=== PATIENT | male | born 1970 | race Caucasian/White ===

== ENCOUNTER 2024-10-05 00:58 | Inpatient (IN) | payer SELFPAY ==
[2024-10-05 01:53] LABS: #Basophils 0.04 10x3/uL (0.0-0.2); #Eosinophils Less than 0.03 10x3/uL (0.0-0.7); #Monocytes 0.93 10x3/uL (0.11-0.59); #Neutrophils 10.43 10x3/uL (1.40-6.50); %Basophils 0.3 % (0.0-1.0); %Eosinophils 0.0 % (0.0-10.0); %Lymphocytes 6.4 % (21.0-51.0); %Monocytes 7.5 % (0.0-10.0); %Neutrophils 84.3 % (42.0-75.0); Hematocrit 30.8 % (42.0-52.0); Hemoglobin 11.0 g/dL (14.0-18.0); Mean Corpuscular Hemoglobin 35.4 pg (27.0-31.0); Mean Corpuscular Volume 99.0 fL (78.0-98.0); Platelet Count 122 10x3/uL (130-400); Red Blood Cell (RBC) Count 3.11 mill/uL (4.70-6.10); White Blood Cell (WBC) Count 12.38 10x3/uL (4.8-10.8)
[2024-10-05 01:56] LABS: INR-International Normal Ratio 1.3; Prothrombin Time 16.2 sec (12.0-14.7)
[2024-10-05 01:56] LABS: Bilirubin, Total 13.4 mg/dL (0.3-1.2)
[2024-10-05 01:57] LABS: PTT 40.8 sec (22.9-36.1)
[2024-10-05 02:00] LABS: Acetaminophen Less than 10 mcg/mL (Less than 10); Salicylate Less than 8.0 mg/dL (Less than 8.0)
[2024-10-05 02:01] LABS: ALT (SGPT) 122 U/L (Less than 45); AST (SGOT) 345 U/L (11-34); Albumin 2.5 g/dL (3.1-4.5); Alkaline Phosphatase 229 U/L (40-110); Anion Gap 27 mmol/L (10-20); BUN (Urea Nitrogen) 25 mg/dL (8.4-25.7); Bilirubin, Total 13.7 mg/dL (0.3-1.2); CK (CPK) 148 U/L (30-200); Calc. Creatinine Clearance 0 mL/min (70-130); Calcium 10.6 mg/dL (7.8-10.44); Carbon Dioxide 21 mmol/L (22-29); Chloride 89 mmol/L (98-107); Globulin 5.1 g/dL (2.4-3.5); Glucose 93 mg/dL (70-105); Potassium 3.4 mmol/L (3.5-5.1); Sodium 134 mmol/L (136-145)
[2024-10-05 02:04] LABS: Troponin I 0.036 ng/mL (< 0.028)
[2024-10-05] MEDS ORDERED: cefTRIAXone (ROCEPHIN) 1 GM VIAL ONE (02:15)
[2024-10-05 05:15] LABS: Actual Bicarbonate (HCO3v) 22.6 mEq/L (22-28); Base Excess -0.8 mEq/L (-2.0 to +3.0); Calcium, Ionized (venous) 1.28 mmol/L (1.16-1.32); Chloride (VBG) 94 mmol/L (98-106); Hematocrit-VBG 35 % (42.0-52.0); Hemoglobin (Hb) 11.9 g/dL (13.1-17.2); Potassium (VBG) 3.17 mmol/L (3.70-5.30); Sodium 135 mmol/L (133-146)
[2024-10-05] MEDS ORDERED: Melatonin 3 MG TAB PO PRN (05:39)
[2024-10-05] MEDS ORDERED: Senokot S 8.6-50 MG TAB PO PRN (05:39)
[2024-10-05] MEDS ORDERED: Electrolyte Replacement Protocol 1 EACH FS SCH (05:45)
[2024-10-05 06:17] LABS: Bilirubin, Direct 10.5 mg/dL (0.1-0.3); Magnesium 1.9 mg/dL (1.6-2.6)
[2024-10-05 06:22] LABS: Troponin I 0.040 ng/mL (< 0.028)
[2024-10-05 06:43] VITALS: BMI 41.6
[2024-10-05 07:30] LABS: Cardiac Risk 42.2 (Less than 4.5); Cholesterol 211 mg/dl (< 200 Desired); HDL Cholesterol 5 mg/dL (>60 Neg Risk); Triglycerides 499 mg/dL (Less than 150)
[2024-10-05 07:42] LABS: Thyroid Stimulating Hormone 3.3038 uIU/mL (0.35-4.94)
[2024-10-05 07:45] LABS: Hep A IgM AB NONREACTIVE (NonReactive); Hep A IgM S/CO 0.17 S/CO (0-0.79); Hep B Core IgM Index 0.14 S/CO (0-0.79); Hep B Surf Ag NONREACTIVE S/CO (NonReactive); Hep C IgG Ab NONREACTIVE S/CO (NonReactive); Hep C Index 0.15 S/CO (0-0.79)
[2024-10-05 08:01] LABS: Vitamin B12 Greater than 2000 pg/mL (211-911)
[2024-10-05 08:09] LABS: Troponin I 0.047 ng/mL (< 0.028)
[2024-10-05] MEDS: Albumin 25% 25 GM (100 mL) BOT IVPB SCH (08:58)
[2024-10-05] MEDS ORDERED: Iopamidol 370 76% 100 ML VIAL ONE (09:00)
[2024-10-05] MEDS: Enoxaparin 40 MG (0.4 mL) SYRINGE SC SCH ×2 (09:03→19:52)
[2024-10-05] MEDS: Multivit, Therapeutic 1 TAB PO SCH (09:04)
[2024-10-05] MEDS: Folic Acid 1 MG TAB PO SCH (09:04)
[2024-10-05] MEDS: Magnesium 2 GM/50 ML(in water) 2 GM in Premix 1 BAG IVPB SCH (11:08)
[2024-10-05] MEDS: Clotrimazole 1 % Cream 30 GM TUBE TOP SCH (11:08)
[2024-10-05 11:26] LABS: HIV (1/2) Antibody/Antigen NONREACTIVE (NonReactive); HIV 1/2 INDEX 0.06 S/CO (<1.00)
[2024-10-05 13:53] LABS: Cocaine Metabolite Screen Negative (Negative); THC/Cannabinoid Screen Negative (Negative); Tricyclic Screen Negative (Negative)
[2024-10-05 16:19] LABS: CAUTI Indications for Culture Alt mental st,lethar; Glucose, Urine (Dipstick) Normal (Negative); Leukocyte 25 Leu/uL (Negative); Protein, Urine (Dipstick) 30 mg/dL (Neg-Trace); Specific Gravity, Urine 1.044 (1.002-1.036)
[2024-10-05 16:28] LABS: Bacteria/HPF Rare-Few HPF (None Seen)
[2024-10-05 16:29] LABS: Urine Culture Reflex No No
[2024-10-05] MEDS ORDERED: hydrALAZINE 20 MG/ML VIAL SLOW IVP PRN (21:59)
[2024-10-06 04:39] LABS: ALT (SGPT) 113 U/L (Less than 45); AST (SGOT) 314 U/L (11-34); Albumin 3.3 g/dL (3.1-4.5); Alkaline Phosphatase 200 U/L (40-110); Anion Gap 20 mmol/L (10-20); BUN (Urea Nitrogen) 26 mg/dL (8.4-25.7); Bilirubin, Total 16.9 mg/dL (0.3-1.2); Calc. Creatinine Clearance 117 mL/min (70-130); Calcium 11.1 mg/dL (7.8-10.44); Carbon Dioxide 24 mmol/L (22-29); Chloride 91 mmol/L (98-107); Globulin 4.9 g/dL (2.4-3.5); Glucose 134 mg/dL (70-105); Magnesium 2.2 mg/dL (1.6-2.6); Potassium 2.8 mmol/L (3.5-5.1); Sodium 132 mmol/L (136-145)
[2024-10-06] MEDS ORDERED: Potassium Chloride 20 MEQ in Premix 1 BAG IVPB SCH (04:45)
[2024-10-06 04:48] LABS: #Basophils 0.04 10x3/uL (0.0-0.2); #Eosinophils 0.03 10x3/uL (0.0-0.7); #Monocytes 1.00 10x3/uL (0.11-0.59); #Neutrophils 10.19 10x3/uL (1.40-6.50); %Basophils 0.3 % (0.0-1.0); %Eosinophils 0.2 % (0.0-10.0); %Lymphocytes 6.5 % (21.0-51.0); %Monocytes 8.1 % (0.0-10.0); %Neutrophils 83.2 % (42.0-75.0); Hematocrit 29.7 % (42.0-52.0); Hemoglobin 10.6 g/dL (14.0-18.0); Mean Corpuscular Hemoglobin 36.1 pg (27.0-31.0); Mean Corpuscular Volume 101.0 fL (78.0-98.0); Platelet Count 100 10x3/uL (130-400); Red Blood Cell (RBC) Count 2.94 mill/uL (4.70-6.10); White Blood Cell (WBC) Count 12.27 10x3/uL (4.8-10.8)
[2024-10-06] MEDS: Pantoprazole 40 MG VIAL IVP SCH (08:28)
[2024-10-06 08:36] LABS: Anion Gap 21 mmol/L (10-20); BUN (Urea Nitrogen) 25 mg/dL (8.4-25.7); Calc. Creatinine Clearance 121 mL/min (70-130); Calcium 10.9 mg/dL (7.8-10.44); Carbon Dioxide 22 mmol/L (22-29); Chloride 91 mmol/L (98-107); Glucose 128 mg/dL (70-105); Potassium 2.9 mmol/L (3.5-5.1); Sodium 131 mmol/L (136-145)
[2024-10-06] MEDS: Lactulose 20 GM (30 mL) UDCUP PO SCH ×3 (08:40→21:31)
[2024-10-06] MEDS: NIFEdipine XL 30 MG ER.TAB PO SCH (08:40)
[2024-10-06] MEDS: PHOS-NAK 1 PKT PACK PO SCH ×2 (10:17→15:15)
[2024-10-06 14:15] LABS: Anion Gap 21 mmol/L (10-20); BUN (Urea Nitrogen) 24 mg/dL (8.4-25.7); Calc. Creatinine Clearance 133 mL/min (70-130); Calcium 11.3 mg/dL (7.8-10.44); Carbon Dioxide 21 mmol/L (22-29); Chloride 92 mmol/L (98-107); Glucose 142 mg/dL (70-105); Magnesium 2.1 mg/dL (1.6-2.6); Potassium 3.0 mmol/L (3.5-5.1); Sodium 131 mmol/L (136-145)
[2024-10-06] MEDS: Potassium Phosphate 30 MMOL in Sodium Chloride 0.9% 250 ML 250 ML IVPB SCH (15:15)
[2024-10-06 22:18] LABS: Anion Gap 19 mmol/L (10-20); BUN (Urea Nitrogen) 23 mg/dL (8.4-25.7); Calc. Creatinine Clearance 149 mL/min (70-130); Calcium 10.8 mg/dL (7.8-10.44); Carbon Dioxide 25 mmol/L (22-29); Chloride 95 mmol/L (98-107); Glucose 136 mg/dL (70-105); Magnesium 1.9 mg/dL (1.6-2.6); Potassium 3.1 mmol/L (3.5-5.1); Sodium 136 mmol/L (136-145)
[2024-10-07] MEDS: PHOS-NAK 1 PKT PACK PO SCH (00:06)
[2024-10-07] MEDS: Lactulose 20 GM (30 mL) UDCUP PR SCH ×2 (00:36→10:40)
[2024-10-07 03:02] LABS: Anion Gap 18 mmol/L (10-20); BUN (Urea Nitrogen) 24 mg/dL (8.4-25.7); Calc. Creatinine Clearance 159 mL/min (70-130); Calcium 10.6 mg/dL (7.8-10.44); Carbon Dioxide 24 mmol/L (22-29); Chloride 97 mmol/L (98-107); Glucose 132 mg/dL (70-105); Potassium 3.4 mmol/L (3.5-5.1); Sodium 136 mmol/L (136-145)
[2024-10-07 04:13] LABS: Actual Bicarbonate (HCO3v) 26.1 mEq/L (22-28); Base Excess 2.6 mEq/L (-2.0 to +3.0); Calcium, Ionized (venous) 1.29 mmol/L (1.16-1.32); Chloride (VBG) 98 mmol/L (98-106); Hematocrit-VBG 38 % (42.0-52.0); Hemoglobin (Hb) 13.0 g/dL (13.1-17.2); Potassium (VBG) 3.55 mmol/L (3.70-5.30); Sodium 137 mmol/L (133-146)
[2024-10-07 04:30] LABS: INR-International Normal Ratio 1.5; Prothrombin Time 18.4 sec (12.0-14.7)
[2024-10-07 04:31] LABS: PTT 42.0 sec (22.9-36.1)
[2024-10-07 04:42] LABS: ALT (SGPT) 113 U/L (Less than 45); AST (SGOT) 302 U/L (11-34); Albumin 2.8 g/dL (3.1-4.5); Alkaline Phosphatase 198 U/L (40-110); Anion Gap 20 mmol/L (10-20); BUN (Urea Nitrogen) 22 mg/dL (8.4-25.7); Bilirubin, Total 19.3 mg/dL (0.3-1.2); Calc. Creatinine Clearance 148 mL/min (70-130); Calcium 10.8 mg/dL (7.8-10.44); Carbon Dioxide 24 mmol/L (22-29); Chloride 98 mmol/L (98-107); Globulin 5.2 g/dL (2.4-3.5); Glucose 137 mg/dL (70-105); Magnesium 1.9 mg/dL (1.6-2.6); Potassium 3.5 mmol/L (3.5-5.1); Sodium 138 mmol/L (136-145)
[2024-10-07 05:03] LABS: Hematocrit 33.2 % (42.0-52.0); Hemoglobin 11.7 g/dL (14.0-18.0); Mean Corpuscular Hemoglobin 35.8 pg (27.0-31.0); Mean Corpuscular Volume 101.5 fL (78.0-98.0); Platelet Count 109 10x3/uL (130-400); Red Blood Cell (RBC) Count 3.27 mill/uL (4.70-6.10); White Blood Cell (WBC) Count 12.24 10x3/uL (4.8-10.8)
[2024-10-07] MEDS: Potassium Phosphate 30 MMOL in Sodium Chloride 0.9% 250 ML 250 ML IVPB SCH (05:52)
[2024-10-07 06:41] LABS: Anisocytosis SLIGHT = 6-15 cells HPF (0-5); Macrocytosis MODERATE=16-30 cells HPF (0-5); Nucleated RBC (Manual Ct) 3 % (0); Other Cell Types 4.0; Platelet Adequacy Comment Platelets Decreased; Polychromasia MODERATE = 3-4 cells HPF (0-2); Smudge Cells 22.0 %; Target Cells SLIGHT = 2-5 cells HPF (0-1)
[2024-10-07] MEDS ORDERED: Folic Acid 5 MG/ML MDV SC SCH (09:00)
[2024-10-07] MEDS ORDERED: Lactulose 10 GM/15 ML Oral Solution PR SCH (10:00)
[2024-10-07] MEDS: Folic Acid 0.4 MG in Admixture Fee 1 EACH SC SCH (10:39)
[2024-10-07] MEDS: Lactulose 20 GM (30 mL) UDCUP PER TUBE SCH ×2 (11:01→20:24)
[2024-10-07] MEDS ORDERED: Acetaminophen 500 MG TAB PER TUBE PRN (12:48)
[2024-10-07 13:20] LABS: Bacteria/HPF None Seen HPF (None Seen); CAUTI Indications for Culture Alt mental st,lethar; Glucose, Urine (Dipstick) Normal (Negative); Leukocyte Negative Leu/uL (Negative); Protein, Urine (Dipstick) 30 mg/dL (Neg-Trace); Specific Gravity, Urine 1.025 (1.002-1.036); WBC/HPF 21-50 HPF (0-3)
[2024-10-07 13:23] LABS: Urine Culture Reflex Yes Yes
[2024-10-07 13:24] LABS: Anion Gap 16 mmol/L (10-20); BUN (Urea Nitrogen) 22 mg/dL (8.4-25.7); Calc. Creatinine Clearance 153 mL/min (70-130); Calcium 10.4 mg/dL (7.8-10.44); Carbon Dioxide 25 mmol/L (22-29); Chloride 100 mmol/L (98-107); Glucose 131 mg/dL (70-105); Magnesium 1.8 mg/dL (1.6-2.6); Potassium 3.4 mmol/L (3.5-5.1); Sodium 138 mmol/L (136-145)
[2024-10-07 14:07] LABS: CAUTI Indications for Culture Alt mental st,lethar; Glucose, Urine (Dipstick) Normal (Negative); Leukocyte 25 Leu/uL (Negative); Protein, Urine (Dipstick) 20 mg/dL (Neg-Trace); RBC/HPF 21-50 HPF (0-3); Specific Gravity, Urine 1.024 (1.002-1.036); WBC/HPF 21-50 HPF (0-3)
[2024-10-07 14:09] LABS: Bacteria/HPF 1+ HPF (None Seen)
[2024-10-07] MEDS: Magnesium 2 GM/50 ML(in water) 2 GM in Premix 1 BAG IVPB SCH (14:56)
[2024-10-07] MEDS: cefTRIAXone\\ROCEPHIN 2 GM in Sodium Chloride 0.9% 100 ML IVPB SCH (14:57)
[2024-10-07] MEDS ORDERED: cefTRIAXone\\ROCEPHIN 1 GM in Sodium Chloride 0.9% 100 ML IVPB SCH (15:00)
[2024-10-07] MEDS: Lactulose 20 GM (30 mL) UDCUP PO SCH (17:30)
[2024-10-07] MEDS ORDERED: Furosemide 40 MG (4 mL) VIAL SLOW IVP SCH (17:30)
[2024-10-07] MEDS ORDERED: Lactulose 20 GM (30 mL) UDCUP PER TUBE SCH (21:00)
[2024-10-07 21:12] LABS: Anion Gap 18 mmol/L (10-20); BUN (Urea Nitrogen) 21 mg/dL (8.4-25.7); Calc. Creatinine Clearance 164 mL/min (70-130); Calcium 10.4 mg/dL (7.8-10.44); Carbon Dioxide 25 mmol/L (22-29); Chloride 100 mmol/L (98-107); Glucose 125 mg/dL (70-105); Magnesium 2.2 mg/dL (1.6-2.6); Potassium 3.6 mmol/L (3.5-5.1); Sodium 139 mmol/L (136-145)
[2024-10-07 22:04] LABS: Actual Bicarbonate (HCO3a) 27.8 mEq/L (22-28); Base Excess (BEa) 3.9 mEq/L (-2.0 to +3.0); CO2 Tension 39.3 mmHg (35.0-45.0); Calcium, Ionized (arterial) 1.34 mmol/L (1.12-1.30); Hematocrit-ABG 35 % (42.0-52.0); Hemoglobin (Hb) 11.8 g/dL (14.0-18.0); O2 Tension (PaO2), arterial 70.2 mmHg (80.0-100.0); Potassium - ABG Lab 3.53 mmol/L (3.70-5.30); pH, Arterial 7.468 (7.35-7.45)
[2024-10-08 03:27] LABS: Hematocrit 30.9 % (42.0-52.0); Hemoglobin 10.5 g/dL (14.0-18.0); Mean Corpuscular Hemoglobin 35.6 pg (27.0-31.0); Mean Corpuscular Volume 104.7 fL (78.0-98.0); Platelet Count 134 10x3/uL (130-400); Red Blood Cell (RBC) Count 2.95 mill/uL (4.70-6.10); White Blood Cell (WBC) Count 13.48 10x3/uL (4.8-10.8)
[2024-10-08 03:41] LABS: ALT (SGPT) 111 U/L (Less than 45); AST (SGOT) 284 U/L (11-34); Albumin 2.6 g/dL (3.1-4.5); Alkaline Phosphatase 186 U/L (40-110); Anion Gap 18 mmol/L (10-20); BUN (Urea Nitrogen) 23 mg/dL (8.4-25.7); Bilirubin, Total 21.9 mg/dL (0.3-1.2); Calc. Creatinine Clearance 176 mL/min (70-130); Calcium 10.4 mg/dL (7.8-10.44); Carbon Dioxide 25 mmol/L (22-29); Chloride 100 mmol/L (98-107); Globulin 4.9 g/dL (2.4-3.5); Glucose 135 mg/dL (70-105); Magnesium 2.2 mg/dL (1.6-2.6); Potassium 3.6 mmol/L (3.5-5.1); Sodium 139 mmol/L (136-145)
[2024-10-08 03:47] LABS: Anisocytosis SLIGHT = 6-15 cells HPF (0-5); Macrocytosis SLIGHT = 6-15 cells HPF (0-5); Nucleated RBC (Manual Ct) 7 % (0); Platelet Adequacy Comment Platelets Normal; Polychromasia SLIGHT = 2-3 cells HPF (0-2); Smudge Cells 7.0 %; Target Cells SLIGHT = 2-5 cells HPF (0-1)
[2024-10-08 05:34] LABS: INR-International Normal Ratio 1.5; Prothrombin Time 18.3 sec (12.0-14.7)
[2024-10-08 05:35] LABS: PTT 41.9 sec (22.9-36.1)
[2024-10-08] MEDS ORDERED: Thiamine 100 MG TAB PO SCH (09:00)
[2024-10-08] MEDS: Electrolyte Replacement Protocol 1 EACH FS ONE (09:14)
[2024-10-08] MEDS: PHOS-NAK 1 PKT PACK PO SCH (09:16)
[2024-10-08] MEDS: Mineral Oil ENEMA PR SCH (10:53)
[2024-10-08] MEDS: Lactulose 20 GM (30 mL) UDCUP PER TUBE SCH (18:21)
[2024-10-08] MEDS: Bisacodyl 10 MG SUPP PR SCH (21:04)
[2024-10-09 03:23] LABS: Hematocrit 31.1 % (42.0-52.0); Hemoglobin 10.4 g/dL (14.0-18.0); Mean Corpuscular Hemoglobin 36.1 pg (27.0-31.0); Mean Corpuscular Volume 108.0 fL (78.0-98.0); Platelet Count 134 10x3/uL (130-400); Red Blood Cell (RBC) Count 2.88 mill/uL (4.70-6.10); White Blood Cell (WBC) Count 13.32 10x3/uL (4.8-10.8)
[2024-10-09 03:28] LABS: INR-International Normal Ratio 1.4; Prothrombin Time 17.5 sec (12.0-14.7)
[2024-10-09 03:29] LABS: PTT 44.7 sec (22.9-36.1)
[2024-10-09 04:06] LABS: ALT (SGPT) 104 U/L (Less than 45); AST (SGOT) 278 U/L (11-34); Albumin 2.5 g/dL (3.1-4.5); Alkaline Phosphatase 179 U/L (40-110); Anion Gap 16 mmol/L (10-20); BUN (Urea Nitrogen) 22 mg/dL (8.4-25.7); Bilirubin, Total 23.4 mg/dL (0.3-1.2); Calc. Creatinine Clearance 186 mL/min (70-130); Calcium 10.1 mg/dL (7.8-10.44); Carbon Dioxide 28 mmol/L (22-29); Chloride 102 mmol/L (98-107); Globulin 4.8 g/dL (2.4-3.5); Glucose 130 mg/dL (70-105); Magnesium 2.2 mg/dL (1.6-2.6); Potassium 3.6 mmol/L (3.5-5.1); Sodium 142 mmol/L (136-145)
[2024-10-09 05:34] LABS: Anisocytosis SLIGHT = 6-15 cells HPF (0-5); Macrocytosis MODERATE=16-30 cells HPF (0-5); Nucleated RBC (Manual Ct) 3 % (0); Platelet Adequacy Comment Platelets Normal; Polychromasia SLIGHT = 2-3 cells HPF (0-2); Smudge Cells 22.0 %
[2024-10-10 05:47] LABS: INR-International Normal Ratio 1.3; Prothrombin Time 16.8 sec (12.0-14.7)
[2024-10-10 05:48] LABS: PTT 43.2 sec (22.9-36.1)
[2024-10-10 05:51] LABS: Hematocrit 35.8 % (42.0-52.0); Hemoglobin 11.9 g/dL (14.0-18.0); Mean Corpuscular Hemoglobin 36.5 pg (27.0-31.0); Mean Corpuscular Volume 109.8 fL (78.0-98.0); Platelet Count 143 10x3/uL (130-400); Red Blood Cell (RBC) Count 3.26 mill/uL (4.70-6.10); White Blood Cell (WBC) Count 11.68 10x3/uL (4.8-10.8)
[2024-10-10 06:05] LABS: ALT (SGPT) 108 U/L (Less than 45); AST (SGOT) 318 U/L (11-34); Albumin 2.4 g/dL (3.1-4.5); Alkaline Phosphatase 185 U/L (40-110); Anion Gap 13 mmol/L (10-20); BUN (Urea Nitrogen) 22 mg/dL (8.4-25.7); Bilirubin, Total 24.6 mg/dL (0.3-1.2); Calc. Creatinine Clearance 213 mL/min (70-130); Calcium 10.2 mg/dL (7.8-10.44); Carbon Dioxide 29 mmol/L (22-29); Chloride 103 mmol/L (98-107); Globulin 5.0 g/dL (2.4-3.5); Glucose 122 mg/dL (70-105); Potassium 3.9 mmol/L (3.5-5.1); Sodium 141 mmol/L (136-145)
[2024-10-10 06:29] LABS: Macrocytosis MODERATE=16-30 cells HPF (0-5); Platelet Adequacy Comment Platelets Normal; Polychromasia SLIGHT = 2-3 cells HPF (0-2); Smudge Cells 12.9 %; Target Cells SLIGHT = 2-5 cells HPF (0-1)
[2024-10-10] MEDS: Losartan 25 MG TAB PO SCH (11:11)
[2024-10-11 06:03] LABS: ALT (SGPT) 102 U/L (Less than 45); AST (SGOT) 321 U/L (11-34); Albumin 2.1 g/dL (3.1-4.5); Alkaline Phosphatase 172 U/L (40-110); Anion Gap 15 mmol/L (10-20); BUN (Urea Nitrogen) 28 mg/dL (8.4-25.7); Bilirubin, Total 22.4 mg/dL (0.3-1.2); Calc. Creatinine Clearance 112 mL/min (70-130); Calcium 9.9 mg/dL (7.8-10.44); Carbon Dioxide 28 mmol/L (22-29); Chloride 103 mmol/L (98-107); Globulin 4.7 g/dL (2.4-3.5); Glucose 115 mg/dL (70-105); Potassium 4.1 mmol/L (3.5-5.1); Sodium 142 mmol/L (136-145)
[2024-10-11 06:26] LABS: INR-International Normal Ratio 1.4; Prothrombin Time 17.1 sec (12.0-14.7)
[2024-10-11 06:27] LABS: PTT 45.8 sec (22.9-36.1)
[2024-10-11] MEDS ORDERED: Losartan 25 MG TAB PO SCH (09:00)
[2024-10-11] MEDS: Lansoprazole 30 MG/10 ML UDCUP PER TUBE SCH (09:02)
[2024-10-11] MEDS: Losartan 25 MG TAB PER TUBE SCH (09:02)
[2024-10-11 09:25] LABS: Hematocrit 33.2 % (42.0-52.0); Hemoglobin 11.1 g/dL (14.0-18.0); Mean Corpuscular Hemoglobin 36.6 pg (27.0-31.0); Mean Corpuscular Volume 109.6 fL (78.0-98.0); Platelet Count 154 10x3/uL (130-400); Red Blood Cell (RBC) Count 3.03 mill/uL (4.70-6.10); White Blood Cell (WBC) Count 11.85 10x3/uL (4.8-10.8)
[2024-10-11 09:47] LABS: Anisocytosis MODERATE=16-30 cells HPF (0-5); Giant Platelets 0.9 % (0-5); Macrocytosis MODERATE=16-30 cells HPF (0-5); Nucleated RBC (Manual Ct) 6 % (0); Platelet Adequacy Comment Platelets Normal; Polychromasia MODERATE = 3-4 cells HPF (0-2); Smudge Cells 7.6 %; Spherocytes SLIGHT = 1-5 cells HPF (None Seen); Target Cells MARKED = >16 cells HPF (0-1)
[2024-10-12 05:14] LABS: INR-International Normal Ratio 1.4; PTT 45.7 sec (22.9-36.1); Prothrombin Time 17.6 sec (12.0-14.7)
[2024-10-12 06:05] LABS: ALT (SGPT) 105 U/L (Less than 45); AST (SGOT) 344 U/L (11-34); Albumin 2.0 g/dL (3.1-4.5); Alkaline Phosphatase 186 U/L (40-110); Anion Gap 17 mmol/L (10-20); BUN (Urea Nitrogen) 36 mg/dL (8.4-25.7); Bilirubin, Total 21.4 mg/dL (0.3-1.2); Calc. Creatinine Clearance 78 mL/min (70-130); Calcium 10.1 mg/dL (7.8-10.44); Carbon Dioxide 25 mmol/L (22-29); Chloride 102 mmol/L (98-107); Globulin 4.9 g/dL (2.4-3.5); Glucose 114 mg/dL (70-105); Potassium 3.8 mmol/L (3.5-5.1); Sodium 140 mmol/L (136-145)
[2024-10-12 06:25] LABS: Hematocrit 32.3 % (42.0-52.0); Hemoglobin 10.8 g/dL (14.0-18.0); Mean Corpuscular Hemoglobin 36.2 pg (27.0-31.0); Mean Corpuscular Volume 108.4 fL (78.0-98.0); Platelet Count 176 10x3/uL (130-400); Red Blood Cell (RBC) Count 2.98 mill/uL (4.70-6.10); White Blood Cell (WBC) Count 12.83 10x3/uL (4.8-10.8)
[2024-10-12 08:44] LABS: Anisocytosis MODERATE=16-30 cells HPF (0-5); Macrocytosis SLIGHT = 6-15 cells HPF (0-5); Nucleated RBC (Manual Ct) 1 % (0); Platelet Adequacy Comment Platelets Normal; Polychromasia MODERATE = 3-4 cells HPF (0-2); Smudge Cells 7.9 %; Target Cells MODERATE= 6-15 cells HPF (0-1)
[2024-10-12] MEDS: Folic Acid 1 MG TAB PO SCH (09:15)
[2024-10-12] MEDS: Sodium Phosphate 40 MMOL in Sodium Chloride 0.9% 250 ML 250 ML IVPB SCH (09:23)
[2024-10-12] MEDS: Albumin 25% 25 GM (100 mL) BOT IVPB SCH (09:23)
[2024-10-12] MEDS: prednisoLONE 10 MG ODT TAB PO SCH (13:59)
[2024-10-13 07:36] LABS: ALT (SGPT) 101 U/L (Less than 45); AST (SGOT) 311 U/L (11-34); Albumin 2.8 g/dL (3.1-4.5); Alkaline Phosphatase 169 U/L (40-110); Anion Gap 15 mmol/L (10-20); BUN (Urea Nitrogen) 44 mg/dL (8.4-25.7); Bilirubin, Total 23.6 mg/dL (0.3-1.2); Calc. Creatinine Clearance 89 mL/min (70-130); Calcium 9.9 mg/dL (7.8-10.44); Carbon Dioxide 29 mmol/L (22-29); Chloride 99 mmol/L (98-107); Globulin 4.4 g/dL (2.4-3.5); Glucose 117 mg/dL (70-105); Potassium 3.4 mmol/L (3.5-5.1); Sodium 140 mmol/L (136-145)
[2024-10-13] MEDS: Thiamine 100 MG TAB PO SCH (07:53)
[2024-10-13 07:54] LABS: Hematocrit 31.4 % (42.0-52.0); Hemoglobin 10.7 g/dL (14.0-18.0); Mean Corpuscular Hemoglobin 36.9 pg (27.0-31.0); Mean Corpuscular Volume 108.3 fL (78.0-98.0); Platelet Count 200 10x3/uL (130-400); Red Blood Cell (RBC) Count 2.90 mill/uL (4.70-6.10); White Blood Cell (WBC) Count 12.96 10x3/uL (4.8-10.8)
[2024-10-13] MEDS: Multivit, Therapeutic 1 TAB PO SCH (07:54)
[2024-10-13 08:16] LABS: INR-International Normal Ratio 1.4; PTT 43.1 sec (22.9-36.1); Prothrombin Time 16.9 sec (12.0-14.7)
[2024-10-13 09:16] LABS: Anisocytosis MODERATE=16-30 cells HPF (0-5); Macrocytosis SLIGHT = 6-15 cells HPF (0-5); Ovalocytes SLIGHT = 2-5 cells HPF (0-1); Platelet Adequacy Comment Platelets Normal; Polychromasia MODERATE = 3-4 cells HPF (0-2); Stomatocytes SLIGHT = 2-5 cells HPF (0-1); Target Cells MODERATE= 6-15 cells HPF (0-1)
[2024-10-13] MEDS: Albumin 25% 25 GM (100 mL) BOT IVPB SCH (11:43)
[2024-10-13] MEDS: Lactulose 20 GM (30 mL) UDCUP PR SCH (13:01)
[2024-10-13] MEDS: prednisoLONE 15 MG/5 ML UDCUP PO SCH (20:06)
[2024-10-14 05:30] LABS: Hematocrit 33.2 % (42.0-52.0); Hemoglobin 11.0 g/dL (14.0-18.0); Mean Corpuscular Hemoglobin 35.3 pg (27.0-31.0); Mean Corpuscular Volume 106.4 fL (78.0-98.0); Platelet Count 212 10x3/uL (130-400); Red Blood Cell (RBC) Count 3.12 mill/uL (4.70-6.10); White Blood Cell (WBC) Count 14.31 10x3/uL (4.8-10.8)
[2024-10-14 05:36] LABS: INR-International Normal Ratio 1.5; PTT 46.6 sec (22.9-36.1); Prothrombin Time 18.0 sec (12.0-14.7)
[2024-10-14 05:47] LABS: ALT (SGPT) 90 U/L (Less than 45); AST (SGOT) 279 U/L (11-34); Albumin 2.6 g/dL (3.1-4.5); Alkaline Phosphatase 160 U/L (40-110); Anion Gap 16 mmol/L (10-20); BUN (Urea Nitrogen) 36 mg/dL (8.4-25.7); Bilirubin, Total 21.6 mg/dL (0.3-1.2); Calc. Creatinine Clearance 137 mL/min (70-130); Calcium 9.6 mg/dL (7.8-10.44); Carbon Dioxide 29 mmol/L (22-29); Chloride 96 mmol/L (98-107); Globulin 4.3 g/dL (2.4-3.5); Glucose 154 mg/dL (70-105); Potassium 3.7 mmol/L (3.5-5.1); Sodium 137 mmol/L (136-145)
[2024-10-14 05:57] LABS: Anisocytosis SLIGHT = 6-15 cells HPF (0-5); Macrocytosis SLIGHT = 6-15 cells HPF (0-5); Nucleated RBC (Manual Ct) 1 % (0); Platelet Adequacy Comment Platelets Normal; Polychromasia SLIGHT = 2-3 cells HPF (0-2); Target Cells SLIGHT = 2-5 cells HPF (0-1)
[2024-10-14] MEDS: prednisoLONE 15 MG/5 ML UDCUP PO SCH (11:31)
[2024-10-14] MEDS: Lactulose 20 GM (30 mL) UDCUP PO SCH (13:35)
[2024-10-14] MEDS: Rifaximin 550 MG TAB PO SCH (20:48)
[2024-10-14] MEDS: Nystatin Powder 15 GM BOT TOP PRN (20:49)
[2024-10-15 03:50] LABS: #Basophils 0.04 10x3/uL (0.0-0.2); #Eosinophils Less than 0.03 10x3/uL (0.0-0.7); #Monocytes 1.37 10x3/uL (0.11-0.59); #Neutrophils 11.97 10x3/uL (1.40-6.50); %Basophils 0.3 % (0.0-1.0); %Eosinophils 0.1 % (0.0-10.0); %Lymphocytes 6.3 % (21.0-51.0); %Monocytes 9.3 % (0.0-10.0); %Neutrophils 81.5 % (42.0-75.0); Hematocrit 31.9 % (42.0-52.0); Hemoglobin 10.8 g/dL (14.0-18.0); Mean Corpuscular Hemoglobin 36.1 pg (27.0-31.0); Mean Corpuscular Volume 106.7 fL (78.0-98.0); Platelet Count 243 10x3/uL (130-400); Red Blood Cell (RBC) Count 2.99 mill/uL (4.70-6.10); White Blood Cell (WBC) Count 14.68 10x3/uL (4.8-10.8)
[2024-10-15 04:04] LABS: INR-International Normal Ratio 1.4; PTT 41.8 sec (22.9-36.1); Prothrombin Time 17.0 sec (12.0-14.7)
[2024-10-15 04:08] LABS: ALT (SGPT) 99 U/L (Less than 45); AST (SGOT) 289 U/L (11-34); Albumin 2.4 g/dL (3.1-4.5); Alkaline Phosphatase 170 U/L (40-110); Anion Gap 13 mmol/L (10-20); BUN (Urea Nitrogen) 33 mg/dL (8.4-25.7); Bilirubin, Total 21.0 mg/dL (0.3-1.2); Calc. Creatinine Clearance 183 mL/min (70-130); Calcium 9.6 mg/dL (7.8-10.44); Carbon Dioxide 30 mmol/L (22-29); Chloride 98 mmol/L (98-107); Globulin 4.3 g/dL (2.4-3.5); Glucose 158 mg/dL (70-105); Potassium 3.3 mmol/L (3.5-5.1); Sodium 138 mmol/L (136-145)
[2024-10-15] MEDS: PHOS-NAK 1 PKT PACK PO SCH ×3 (04:43→09:01)
[2024-10-15 08:56] LABS: Magnesium 1.8 mg/dL (1.6-2.6)
[2024-10-15] MEDS: Losartan 25 MG TAB PO SCH (11:50)
[2024-10-16 05:56] LABS: #Basophils 0.05 10x3/uL (0.0-0.2); #Eosinophils Less than 0.03 10x3/uL (0.0-0.7); #Monocytes 1.18 10x3/uL (0.11-0.59); #Neutrophils 15.55 10x3/uL (1.40-6.50); %Basophils 0.3 % (0.0-1.0); %Eosinophils 0.1 % (0.0-10.0); %Lymphocytes 5.6 % (21.0-51.0); %Monocytes 6.5 % (0.0-10.0); %Neutrophils 86.1 % (42.0-75.0); Hematocrit 33.2 % (42.0-52.0); Hemoglobin 11.1 g/dL (14.0-18.0); Mean Corpuscular Hemoglobin 35.4 pg (27.0-31.0); Mean Corpuscular Volume 105.7 fL (78.0-98.0); Platelet Count 234 10x3/uL (130-400); Red Blood Cell (RBC) Count 3.14 mill/uL (4.70-6.10); White Blood Cell (WBC) Count 18.06 10x3/uL (4.8-10.8)
[2024-10-16 06:11] LABS: ALT (SGPT) 119 U/L (Less than 45); AST (SGOT) 334 U/L (11-34); Albumin 2.4 g/dL (3.1-4.5); Alkaline Phosphatase 171 U/L (40-110); Anion Gap 15 mmol/L (10-20); BUN (Urea Nitrogen) 25 mg/dL (8.4-25.7); Bilirubin, Total 22.9 mg/dL (0.3-1.2); Calc. Creatinine Clearance 202 mL/min (70-130); Calcium 9.7 mg/dL (7.8-10.44); Carbon Dioxide 31 mmol/L (22-29); Chloride 97 mmol/L (98-107); Globulin 4.8 g/dL (2.4-3.5); Glucose 117 mg/dL (70-105); Potassium 3.5 mmol/L (3.5-5.1); Sodium 139 mmol/L (136-145)
[2024-10-16] MEDS: Losartan 25 MG TAB PO SCH (10:06)
[2024-10-16 10:59] LABS: INR-International Normal Ratio 1.4; PTT 40.0 sec (22.9-36.1); Prothrombin Time 17.2 sec (12.0-14.7)
[2024-10-17 05:06] LABS: #Basophils 0.03 10x3/uL (0.0-0.2); #Eosinophils Less than 0.03 10x3/uL (0.0-0.7); #Monocytes 1.03 10x3/uL (0.11-0.59); #Neutrophils 13.88 10x3/uL (1.40-6.50); %Basophils 0.2 % (0.0-1.0); %Eosinophils 0.1 % (0.0-10.0); %Lymphocytes 6.3 % (21.0-51.0); %Monocytes 6.4 % (0.0-10.0); %Neutrophils 85.5 % (42.0-75.0); Hematocrit 33.0 % (42.0-52.0); Hemoglobin 11.4 g/dL (14.0-18.0); Mean Corpuscular Hemoglobin 36.5 pg (27.0-31.0); Mean Corpuscular Volume 105.8 fL (78.0-98.0); Platelet Count 228 10x3/uL (130-400); Red Blood Cell (RBC) Count 3.12 mill/uL (4.70-6.10); White Blood Cell (WBC) Count 16.22 10x3/uL (4.8-10.8)
[2024-10-17 05:22] LABS: ALT (SGPT) 125 U/L (Less than 45); AST (SGOT) 301 U/L (11-34); Albumin 2.1 g/dL (3.1-4.5); Alkaline Phosphatase 169 U/L (40-110); Anion Gap 14 mmol/L (10-20); BUN (Urea Nitrogen) 22 mg/dL (8.4-25.7); Bilirubin, Total 21.8 mg/dL (0.3-1.2); Calc. Creatinine Clearance 222 mL/min (70-130); Calcium 9.4 mg/dL (7.8-10.44); Carbon Dioxide 31 mmol/L (22-29); Chloride 96 mmol/L (98-107); Globulin 4.8 g/dL (2.4-3.5); Glucose 110 mg/dL (70-105); Potassium 3.3 mmol/L (3.5-5.1); Sodium 138 mmol/L (136-145)
[2024-10-17 05:24] LABS: Iron 74 ug/dL (65-175); Iron Binding Capacity, Total 104 mcg/dL (261-462)
[2024-10-17 05:39] LABS: INR-International Normal Ratio 1.3; PTT 42.4 sec (22.9-36.1); Prothrombin Time 16.7 sec (12.0-14.7)
[2024-10-17] MEDS: Furosemide 40 MG TAB PO SCH (14:18)
[2024-10-17 14:40] VITALS: BMI 43.9
[2024-10-18 04:52] LABS: #Basophils 0.03 10x3/uL (0.0-0.2); #Eosinophils Less than 0.03 10x3/uL (0.0-0.7); #Monocytes 1.00 10x3/uL (0.11-0.59); #Neutrophils 14.76 10x3/uL (1.40-6.50); %Basophils 0.2 % (0.0-1.0); %Eosinophils 0.1 % (0.0-10.0); %Lymphocytes 6.1 % (21.0-51.0); %Monocytes 5.8 % (0.0-10.0); %Neutrophils 85.3 % (42.0-75.0); Hematocrit 32.6 % (42.0-52.0); Hemoglobin 11.1 g/dL (14.0-18.0); Mean Corpuscular Hemoglobin 36.4 pg (27.0-31.0); Mean Corpuscular Volume 106.9 fL (78.0-98.0); Platelet Count 235 10x3/uL (130-400); Red Blood Cell (RBC) Count 3.05 mill/uL (4.70-6.10); White Blood Cell (WBC) Count 17.29 10x3/uL (4.8-10.8)
[2024-10-18 05:08] LABS: ALT (SGPT) 135 U/L (Less than 45); AST (SGOT) 293 U/L (11-34); Albumin 2.1 g/dL (3.1-4.5); Alkaline Phosphatase 182 U/L (40-110); Anion Gap 13 mmol/L (10-20); BUN (Urea Nitrogen) 18 mg/dL (8.4-25.7); Bilirubin, Total 22.2 mg/dL (0.3-1.2); Calc. Creatinine Clearance 195 mL/min (70-130); Calcium 9.3 mg/dL (7.8-10.44); Carbon Dioxide 32 mmol/L (22-29); Chloride 95 mmol/L (98-107); Globulin 4.9 g/dL (2.4-3.5); Glucose 114 mg/dL (70-105); INR-International Normal Ratio 1.3; PTT 38.2 sec (22.9-36.1); Potassium 3.6 mmol/L (3.5-5.1); Prothrombin Time 16.4 sec (12.0-14.7); Sodium 136 mmol/L (136-145)
[2024-10-18] MEDS: Furosemide 40 MG TAB PO SCH (10:32)
[2024-10-18] MEDS: Spironolactone 25 MG TAB PO SCH (10:40)
[2024-10-18 12:33] LABS: ANA Symphony (Qualitative) Negative (Negative); ANA Symphony (Quantitative) 0.6 Ratio (< 0.7 Negative); EliA Vaculitis New Method **** NEW METHOD ****; Mitochondrial Ab 1.4 U/mL (<4 Negative); dsDNA IgG Antibody 2.2 IU/mL (<10 Negative)
[2024-10-19 05:38] LABS: #Basophils Less than 0.03 10x3/uL (0.0-0.2); #Eosinophils Less than 0.03 10x3/uL (0.0-0.7); #Monocytes 1.02 10x3/uL (0.11-0.59); #Neutrophils 15.91 10x3/uL (1.40-6.50); %Basophils 0.1 % (0.0-1.0); %Eosinophils 0.1 % (0.0-10.0); %Lymphocytes 6.3 % (21.0-51.0); %Monocytes 5.5 % (0.0-10.0); %Neutrophils 85.3 % (42.0-75.0); Hematocrit 34.2 % (42.0-52.0); Hemoglobin 11.6 g/dL (14.0-18.0); Mean Corpuscular Hemoglobin 36.4 pg (27.0-31.0); Mean Corpuscular Volume 107.2 fL (78.0-98.0); Platelet Count 215 10x3/uL (130-400); Red Blood Cell (RBC) Count 3.19 mill/uL (4.70-6.10); White Blood Cell (WBC) Count 18.63 10x3/uL (4.8-10.8)
[2024-10-19 05:54] LABS: ALT (SGPT) 143 U/L (Less than 45); AST (SGOT) 286 U/L (11-34); Albumin 2.1 g/dL (3.1-4.5); Alkaline Phosphatase 180 U/L (40-110); Anion Gap 13 mmol/L (10-20); BUN (Urea Nitrogen) 18 mg/dL (8.4-25.7); Bilirubin, Total 22.2 mg/dL (0.3-1.2); Calc. Creatinine Clearance 272 mL/min (70-130); Calcium 9.1 mg/dL (7.8-10.44); Carbon Dioxide 30 mmol/L (22-29); Chloride 96 mmol/L (98-107); Globulin 4.7 g/dL (2.4-3.5); Glucose 116 mg/dL (70-105); Potassium 3.5 mmol/L (3.5-5.1); Sodium 135 mmol/L (136-145)
[2024-10-19 06:10] LABS: INR-International Normal Ratio 1.3; PTT 39.2 sec (22.9-36.1); Prothrombin Time 16.3 sec (12.0-14.7)
[2024-10-19] MEDS: Spironolactone 25 MG TAB PO SCH (09:19)
[2024-10-19 19:38] LABS: Smooth Muscle Total ABS 20.0 Units (0-19)
[2024-10-20 05:37] LABS: #Basophils 0.06 10x3/uL (0.0-0.2); #Eosinophils Less than 0.03 10x3/uL (0.0-0.7); #Monocytes 0.95 10x3/uL (0.11-0.59); #Neutrophils 16.02 10x3/uL (1.40-6.50); %Basophils 0.3 % (0.0-1.0); %Eosinophils 0.1 % (0.0-10.0); %Lymphocytes 5.8 % (21.0-51.0); %Monocytes 5.1 % (0.0-10.0); %Neutrophils 86.5 % (42.0-75.0); Hematocrit 34.1 % (42.0-52.0); Hemoglobin 11.4 g/dL (14.0-18.0); Mean Corpuscular Hemoglobin 35.7 pg (27.0-31.0); Mean Corpuscular Volume 106.9 fL (78.0-98.0); Platelet Count 224 10x3/uL (130-400); Red Blood Cell (RBC) Count 3.19 mill/uL (4.70-6.10); White Blood Cell (WBC) Count 18.53 10x3/uL (4.8-10.8)
[2024-10-20 05:51] LABS: INR-International Normal Ratio 1.2; PTT 40.3 sec (22.9-36.1); Prothrombin Time 15.8 sec (12.0-14.7)
[2024-10-20 05:58] LABS: ALT (SGPT) 147 U/L (Less than 45); AST (SGOT) 273 U/L (11-34); Albumin 2.1 g/dL (3.1-4.5); Alkaline Phosphatase 192 U/L (40-110); Anion Gap 15 mmol/L (10-20); BUN (Urea Nitrogen) 18 mg/dL (8.4-25.7); Bilirubin, Total 21.5 mg/dL (0.3-1.2); Calc. Creatinine Clearance 236 mL/min (70-130); Calcium 8.9 mg/dL (7.8-10.44); Carbon Dioxide 30 mmol/L (22-29); Chloride 94 mmol/L (98-107); Globulin 4.6 g/dL (2.4-3.5); Glucose 107 mg/dL (70-105); Potassium 3.4 mmol/L (3.5-5.1); Sodium 136 mmol/L (136-145)
[2024-10-20] MEDS: Ibuprofen 600 MG TAB PO PRN (11:37)
[2024-10-20] MEDS: PHOS-NAK 1 PKT PACK PO SCH (11:37)
[2024-10-20] MEDS: Furosemide 40 MG TAB PO SCH (14:19)
[2024-10-21 05:29] LABS: #Basophils 0.04 10x3/uL (0.0-0.2); #Eosinophils 0.03 10x3/uL (0.0-0.7); #Monocytes 0.85 10x3/uL (0.11-0.59); #Neutrophils 15.88 10x3/uL (1.40-6.50); %Basophils 0.2 % (0.0-1.0); %Eosinophils 0.2 % (0.0-10.0); %Lymphocytes 5.9 % (21.0-51.0); %Monocytes 4.7 % (0.0-10.0); %Neutrophils 86.9 % (42.0-75.0); Hematocrit 33.3 % (42.0-52.0); Hemoglobin 11.2 g/dL (14.0-18.0); Mean Corpuscular Hemoglobin 35.8 pg (27.0-31.0); Mean Corpuscular Volume 106.4 fL (78.0-98.0); Platelet Count 197 10x3/uL (130-400); Red Blood Cell (RBC) Count 3.13 mill/uL (4.70-6.10); White Blood Cell (WBC) Count 18.26 10x3/uL (4.8-10.8)
[2024-10-21 05:49] LABS: INR-International Normal Ratio 1.3; PTT 41.6 sec (22.9-36.1); Prothrombin Time 16.2 sec (12.0-14.7)
[2024-10-21 06:07] LABS: ALT (SGPT) 155 U/L (Less than 45); AST (SGOT) 271 U/L (11-34); Albumin 1.9 g/dL (3.1-4.5); Alkaline Phosphatase 198 U/L (40-110); Anion Gap 11 mmol/L (10-20); BUN (Urea Nitrogen) 19 mg/dL (8.4-25.7); Bilirubin, Total 22.2 mg/dL (0.3-1.2); Calc. Creatinine Clearance 280 mL/min (70-130); Calcium 8.6 mg/dL (7.8-10.44); Carbon Dioxide 29 mmol/L (22-29); Chloride 96 mmol/L (98-107); Globulin 4.4 g/dL (2.4-3.5); Glucose 109 mg/dL (70-105); Potassium 3.3 mmol/L (3.5-5.1); Sodium 133 mmol/L (136-145)
[2024-10-21 23:22] VITALS: BP 156/84; TEMP 97.6
== END 2024-10-21 23:15 | disposition home or self-care (01) | DRG 433 ==
LOC: ERS 00:58 → 2NO 05:15 → OBSVTOIN 08:37 → CCU 10-07 09:39 → IMCU/EMU 10-08 13:13 → T4-A 10-12 12:32
PROVIDERS: ADMIT Student in an Organized Health Care Education/Training Program; ATTEND Student in an Organized Health Care Education/Training Program
PROC: HZ2ZZZZ Detoxification Services for Substance Abuse Treatment (ICD-10-PCS; principal; 2024-10-05)
DX: K70.11 Alcoholic hepatitis with ascites (principal); E87.1 Hypo-osmolality and hyponatremia; E87.20 Acidosis, unspecified; F10.139 Alcohol abuse with withdrawal, unspecified; G93.40 Encephalopathy, unspecified; N17.9 Acute kidney failure, unspecified; N39.0 Urinary tract infection, site not specified; K56.7 Ileus, unspecified; K76.82 Hepatic encephalopathy; E03.9 Hypothyroidism, unspecified; E80.6 Other disorders of bilirubin metabolism; E87.6 Hypokalemia; E83.39 Other disorders of phosphorus metabolism; I10 Essential (primary) hypertension; E78.5 Hyperlipidemia, unspecified; Z79.899 Other long term (current) drug therapy
CPT/HCPCS: 36415; 70450; 71045; 71260; 72125; 74018; 74177; 76705; 80053; 80061; 80074; 80306; 80307; 81001; 82103; 82105; 82140; 82247; 82248; 82306; 82390; 82550; 82570; 82607; 82728; 82805; 83036; 83516; 83540; 83550; 83605; 83735; 83880; 84100; 84300; 84443; 84484; 85025; 85610; 85730; 86015; 86038; 86225; 87040; 87077; 87086; 87149; 87186; 87389; 93005; 93306; 93923; 96365; J0696; J1650; J2060; J2470; J3411; J3475; J7030; J7050; J7120; J7510; P9047; Q9967

== ENCOUNTER 2024-12-08 14:04 | Emergency (ER) | payer SELFPAY ==
[2024-12-08] MEDS ORDERED: Pantoprazole 40 MG VIAL ONE (14:13)
[2024-12-08] MEDS ORDERED: cefTRIAXone (ROCEPHIN) 2 GM VIAL ONE (14:30)
[2024-12-08 14:40] LABS: Hematocrit 20.0 % (42.0-52.0); Hemoglobin 6.6 g/dL (14.0-18.0); Mean Corpuscular Hemoglobin 33.7 pg (27.0-31.0); Mean Corpuscular Volume 102.0 fL (78.0-98.0); Platelet Count 195 10x3/uL (130-400); Red Blood Cell (RBC) Count 1.96 mill/uL (4.70-6.10); White Blood Cell (WBC) Count 27.30 10x3/uL (4.8-10.8)
[2024-12-08 14:53] LABS: INR-International Normal Ratio 1.5; Prothrombin Time 18.1 sec (12.0-14.7)
[2024-12-08 14:54] LABS: PTT 33.7 sec (22.9-36.1)
[2024-12-08 14:56] LABS: ALT (SGPT) 43 U/L (Less than 45); AST (SGOT) 148 U/L (11-34); Albumin 1.2 g/dL (3.1-4.5); Alkaline Phosphatase 370 U/L (40-110); Anion Gap 18 mmol/L (10-20); BUN (Urea Nitrogen) 66 mg/dL (8.4-25.7); Bilirubin, Total 5.9 mg/dL (0.3-1.2); Calc. Creatinine Clearance 0 mL/min (70-130); Calcium 7.7 mg/dL (7.8-10.44); Carbon Dioxide 14 mmol/L (22-29); Chloride 108 mmol/L (98-107); Globulin 3.8 g/dL (2.4-3.5); Glucose 151 mg/dL (70-105); Potassium 3.2 mmol/L (3.5-5.1); Sodium 137 mmol/L (136-145)
[2024-12-08 15:02] LABS: Anisocytosis SLIGHT = 6-15 cells HPF (0-5); Burr Cells SLIGHT = 2-5 cells HPF (0-1); Critical Call Chem-Lactate NUR..JH8; Macrocytosis SLIGHT = 6-15 cells HPF (0-5); Platelet Adequacy Comment Platelets Normal; Polychromasia SLIGHT = 2-3 cells HPF (0-2); Smudge Cells 13.3 %
[2024-12-08] MEDS ORDERED: Pantoprazole 80 MG, Admixture Fee 1 EACH in Sodium Chloride 0.9% 100 ML IVPB SCH (15:45)
[2024-12-08] MEDS ORDERED: Octreotide Acetate 1,250 MCG in Sodium Chloride 0.9% 250 ML 250 ML IVPB SCH (15:45)
[2024-12-08] MEDS ORDERED: Etomidate 40 MG (20 mL) VIAL ONE (17:09)
[2024-12-08] MEDS ORDERED: Rocuronium Bromide 10 MG/ML (10ML VIAL) ONE (17:09)
[2024-12-08] MEDS ORDERED: SUGAMMADEX SODIUM 200 MG/2 ML VIAL ONE (17:09)
[2024-12-08] MEDS ORDERED: Ondansetron PF 4 MG/2 ML Vial ONE ×2 (17:09→18:19)
[2024-12-08] MEDS ORDERED: Lidocaine 1% PF 5 ML VIAL ONE (17:09)
[2024-12-08] MEDS ORDERED: Metoclopramide HCl 10 MG (2 mL) VIAL ONE (17:12)
[2024-12-08] MEDS ORDERED: Metoclopramide HCl 10 MG (2 mL) VIAL IVP SCH (17:15)
[2024-12-08] MEDS ORDERED: Phenylephrine 40 MG/NS 250 ML 250 ML ONE (19:34)
[2024-12-08 20:03] LABS: Actual Bicarbonate (HCO3a) 18.3 mEq/L (22-28); Base Excess (BEa) -10.6 mEq/L (-2.0 to +3.0); CO2 Tension 54.3 mmHg (35.0-45.0); Calcium, Ionized (arterial) 1.16 mmol/L (1.12-1.30); Hematocrit-ABG 33 % (42.0-52.0); Hemoglobin (Hb) 11.3 g/dL (14.0-18.0); O2 Tension (PaO2), arterial 82.1 mmHg (80.0-100.0); Potassium - ABG Lab 3.19 mmol/L (3.70-5.30)
[2024-12-08 20:10] LABS: ALV-art Gradient 563.025 mmHg (0-20); Puncture Site Right Brachial art; pH, Arterial 7.146 (7.35-7.45)
[2024-12-08] MEDS ORDERED: Calcium Chloride 1 GM/10 ML Abboject SYRINGE ONE (20:10)
== END 2024-12-08 16:10 | disposition admitted as inpatient to this hospital (09) ==
LOC: ERS 14:04
DX: K92.2 Gastrointestinal hemorrhage, unspecified (principal)
CPT/HCPCS: 36415; 36430; 36556; 36600; 71045; 74176; 80053; 82140; 82805; 83605; 83880; 84484; 85025; 85610; 85730; 86850; 86900; 86901; 87040; 93005; 96365; 96375; 99292; A4311; J0696; J1100; J2250; J2354; J2470; J2765; J7050; P9016; P9035; P9048; P9059